=== PATIENT | male | born 1935 | race Caucasian/White ===

== ENCOUNTER 2020-06-25 13:41 | Emergency (ER) | payer OTHER, SELFPAY ==
[~2020-06-25] VITALS: Ht 167.6 cm; Wt 64.0 kg
[~2020-06-25 13:41] MED LIST: CLON0.1T42 PO; DOCU-299 GT; EPOE2000 SQ; FERR-13 GT; PRO5 GT; ZINC220C28 GT; ZOS2.25PM IV
[2020-06-25 14:42] VITALS: BP 151/71
--- NOTE | 2020-06-25 14:45 | NUR ---
enoch to [facility] Choi
--- NOTE | 2020-06-25 16:39 | NUR ---
Report called to [facility] at [facility].
--- NOTE | 2020-06-25 18:28 | NUR ---
Patient transferred to bed 13 for further care. RN reevaluating the patient at bedside.
--- NOTE | 2020-06-25 19:53 | NUR ---
Patient to be transferred to [facility]. Receiving facility has accepting physician and available space. ER physician has signed transfer form. Patient or responsible constitution party has agreed to transfer and signed form. Patient belongings inventoried and will be sent with patient. Copy of nursing notes, lab reports, EKG, Physicians Orders and X-rays to be sent with patient. Report called to [facility]. [facility] ambulance service has been called for transfer. ETA is 3 minutes to arrive at destination
== END 2020-06-25 19:54 ==
LOC: MED 13:41
DX: N18.6 End stage renal disease (principal); D64.9 Anemia, unspecified; Z99.2 Dependence on renal dialysis; Z98.890 Other specified postprocedural states; Z79.899 Other long term (current) drug therapy
CPT/HCPCS: 71045; 93005; 99283

== ENCOUNTER 2020-07-10 14:17 | Emergency (ER) | payer OTHER, SELFPAY ==
[~2020-07-10] VITALS: Ht 165.1 cm; Wt 54.4 kg
--- NOTE | 2020-07-10 15:10 | NUR ---
Patient transferred to bed 9. RN evaluating patient at bedside.
[2020-07-10 15:19] VITALS: BP 141/74
--- NOTE | 2020-07-10 15:47 | NUR ---
EKG PERFORMED AT BEDSIDE. EKG READS SINUS RHYTHM @ 97
--- NOTE | 2020-07-10 15:52 | NUR ---
84 Y/O MALE BIBA FROM [facility] FOR MISSING DIALYSIS TODAY D/T COVID + STATUS. PATIENT TESTED + FOR COVID YESTERDAY, ASYMPTOMATIC AT THIS TIME. LAST TIME PATIENT RECEIVED DIALYSIS WAS ON THURSDAY. PORT IS L UPPER CHEST. PT IS NON VERBAL, NON AMBULATORY. NOT ABLE TO FOLLOW COMMANDS AT THIS TIME.
[2020-07-10 16:17] LABS: MAGNESIUM 3.5 mg/dL (1.8-2.4); PHOSPHORUS 4.5 mg/dL (2.5-4.9)
[2020-07-10 16:19] LABS: ANION GAP 14.8 (8-16); CARBON DIOXIDE 31.3 mmol/L (21-32); CHLORIDE 95 mmol/L (98-107); GLUCOSE 104 mg/dL (74-106); POTASSIUM 4.1 mmol/L (3.5-5.1); SODIUM SERUM 137 mmol/L (136-145)
[2020-07-10 16:31] LABS: CREATININE 5.6 mg/dL (0.6-1.3); UREA NITROGEN, BLOOD 168 mg/dL (7-18)
--- NOTE | 2020-07-10 16:58 | NUR ---
REPORT CALLED TO [facility], SPOKE WITH MADDI TARIQ
[2020-07-10 18:56] VITALS: BP 141/74
--- NOTE | 2020-07-10 18:56 | NUR ---
Patient discharged with v/s stable. Written and verbal after care instructions given and explained. Patient verbalized understanding. Ambulance Transport with to [facility]. All questions addressed prior to discharge. Advised to follow up with PMD.
[2020-07-12] MEDS ORDERED: MULT-1469 PO (12:50)
[2020-07-12] MEDS ORDERED: FLOR250 PO (12:50)
[2020-07-12] MEDS ORDERED: ALBU3SOL83 IH (12:50)
== END 2020-07-10 18:56 ==
LOC: MED 14:17
DX: I12.0 Hypertensive chronic kidney disease with stage 5 chronic kidney disease or end stage renal disease (principal); N18.6 End stage renal disease; D64.9 Anemia, unspecified; Z99.2 Dependence on renal dialysis; Z79.899 Other long term (current) drug therapy; Z98.890 Other specified postprocedural states
CPT/HCPCS: 36415; 80048; 83735; 84100; 93005; 99284